=== PATIENT | male | born 1990 | race African-American/Black ===

== ENCOUNTER → 2019-03-11 | Outpatient (CLI) | payer OTHER | LOC: MHCPAIN 12:58 | DX: G89.29 Other chronic pain (principal); M47.817 Spondylosis without myelopathy or radiculopathy, lumbosacral region; M53.3 Sacrococcygeal disorders, not elsewhere classified | CPT/HCPCS: G0463 ==

== ENCOUNTER → 2019-03-12 | Outpatient (CLI) | payer OTHER | LOC: MHCPAIN 08:46 | DX: M54.16 Radiculopathy, lumbar region (principal); M47.817 Spondylosis without myelopathy or radiculopathy, lumbosacral region ==

== ENCOUNTER → 2019-03-18 | Outpatient (CLI) | payer OTHER | LOC: MHCPAIN 14:07 | DX: G89.29 Other chronic pain (principal); M47.817 Spondylosis without myelopathy or radiculopathy, lumbosacral region; M53.3 Sacrococcygeal disorders, not elsewhere classified | CPT/HCPCS: G0463 ==

== ENCOUNTER → 2019-03-26 | Outpatient (CLI) | payer OTHER | LOC: MHCPAIN 13:15 | DX: M47.817 Spondylosis without myelopathy or radiculopathy, lumbosacral region (principal); M54.16 Radiculopathy, lumbar region ==

== ENCOUNTER → 2019-04-23 | Outpatient (CLI) | payer OTHER | LOC: MHCPAIN 10:59 | DX: M47.817 Spondylosis without myelopathy or radiculopathy, lumbosacral region (principal); M54.16 Radiculopathy, lumbar region | CPT/HCPCS: J1100; J2250; J3010 ==

== ENCOUNTER → 2019-06-30 | Outpatient (CLI) | payer OTHER | LOC: MHCPAIN 15:31 | DX: G89.29 Other chronic pain (principal); M47.817 Spondylosis without myelopathy or radiculopathy, lumbosacral region; M53.3 Sacrococcygeal disorders, not elsewhere classified | CPT/HCPCS: G0463 ==